=== PATIENT | female | born 2005 | race African-American/Black ===

== ENCOUNTER 2024-05-17 14:43 | Emergency (ER) | payer SELFPAY | END 2024-05-17 15:08 | disposition home or self-care (01) | LOC: CSHERS 14:43 | DX: E11.9 Type 2 diabetes mellitus without complications (principal) | CPT/HCPCS: 99283 ==

== ENCOUNTER 2025-06-21 17:29 | Emergency (ER) | payer BC ==
[2025-06-21] MEDS ORDERED: Ibuprofen 200 MG TAB ONE (17:58)
== END 2025-06-21 18:05 | disposition home or self-care (01) ==
LOC: CSHERS 17:29
DX: M54.6 Pain in thoracic spine (principal); E11.9 Type 2 diabetes mellitus without complications; Z79.84 Long term (current) use of oral hypoglycemic drugs; Z79.4 Long term (current) use of insulin
CPT/HCPCS: 99283